=== PATIENT | female | born 1970 | race Caucasian/White ===

== ENCOUNTER → 2018-07-18 17:47 | Outpatient (CLI) | payer BC, SELFPAY | PROVIDERS: PCP Family Medicine; Visit Provider Family Medicine | DX: G47.33 Obstructive sleep apnea (adult) (pediatric) (principal); R06.83 Snoring; I10 Essential (primary) hypertension; E66.9 Obesity, unspecified | CPT/HCPCS: 95806 ==

== ENCOUNTER → 2021-04-11 10:21 | Outpatient (CLI) | payer BC, SELFPAY ==
--- NOTE | 2021-04-11 10:21 | CT_ITS ---
PROCEDURE: CT ABDOMEN PELVIS WO/W CON CLINICAL INDICATION: hematuria,chronic cystitis COMPARISON: No exams were available for comparison TECHNIQUE: IV Contrast: 75ML Isovue 370 Oral Contrast None Axial images obtained with sagittal and coronal reformats. All CT scans at the facility use one or more dose reduction, viz: automated exposure control, ma/kV adjustment per patient size (including targeted exams where dose is matched to indication, i.e. head), or iterative reconstruction technique. FINDINGS: LOWER THORAX: No acute finding ABDOMEN & PELVIS: Fatty liver. No focal liver lesion apparent. The spleen, adrenal glands, pancreas, has an unremarkable appearance. There are few small periportal lymph nodes. There is a small duodenal diverticulum. The right kidney has an unremarkable appearance. Cortical scarring involves the left kidney. Coarse calcification is present in the lower pole of the left kidney within the cortex. There is some mild [employer] K irwin in the upper pole of the left kidney. No ureteral calculi. No hydronephrosis. There are few small retroperitoneal lymph nodes No intestinal obstruction or free air. No evidence of appendicitis. Small area of decreased density is present in the uterine fundus on the right at 9 mm and may represent a fibroid. The urinary bladder has an unremarkable appearance. There are few small nodes in the inguinal regions. There are mild degenerative changes in the lumbar spine. No acute bony anomalies. There is a small umbilical hernia containing fat. IMPRESSION: 1. Cortical scarring of the left kidney. Cortical calcification is present involving the left kidney. Some of these areas could be due to nonobstructing stones with associated scarring. No hydronephrosis. No ureteral calculi. 2. Other nonacute findings as described above. Dictated by: Humberto Byrd MD 04/12/2021 14:58 Humberto Byrd MD in [place] 04/12/2021 14:58
== END ==
PROVIDERS: PCP Family Medicine; Visit Provider Urology
DX: N30.20 Other chronic cystitis without hematuria (principal); R31.9 Hematuria, unspecified
CPT/HCPCS: 74178; Q9967

== ENCOUNTER → 2021-04-12 13:38 | Outpatient (CLI) | payer BC, SELFPAY | PROVIDERS: Visit Provider Urology | DX: Z20.822 Contact with and (suspected) exposure to COVID-19 (principal) | CPT/HCPCS: C9803; U0003; U0005 ==

== ENCOUNTER 2021-04-14 10:34 | Day surgery (SDC) | payer BC, SELFPAY ==
[2021-04-12 11:17] VITALS: BMI 42.5
[2021-04-14 10:51] VITALS: BP 189/91; PULSE 96; RESP 18; TEMP 36.6; O2SAT 98
[2021-04-14 11:40] VITALS: BP 128/74; PULSE 74; RESP 16; TEMP 36.2; O2SAT 99
--- NOTE | 2021-04-14 16:33 | HMH.OPNOTE ---
Date of procedure: 04/14/21 Pre-op Diagnosis:: Recurring urinary tract infections Post-op Diagnosis:: Recurrent urinary tract infections possibly a result of left ureteral reflux Procedure performed:: Cystoscopy Surgeon:: Moises August MD Anesthesia: local Estimated blood loss (mL): 0 Clinical Note:: 50-year-old white female with a long history of a urinary tract infections. She presents for urologic work-up. CT scan 2 days ago showed some scarring of the left kidney and it is smaller than the left side. There are also some calcifications noted in the left lower pole cortex. Operative findings:: Cystoscopy showed some cystitis cystica at the intertrigonal region. The left ureteral orifice was open and appears to be of a refluxing type. Operative note:: Patient taken to the cystoscopy suite after informed consent was obtained. On the stretcher she was placed into the frog-leg position and prepped and draped in the standard surgical fashion and 2% lidocaine placed into the urethra. After few minutes the flexible cystoscope introduced into the urethral meatus and into the bladder without difficulty. The bladder was examined in a systematic fashion. There was some cystitis cystica at the intertrigonal region near the bladder neck. No other mucosal abnormalities were noted. There was a midline bulge coming from the posterior part of the bladder which likely represents the uterus sitting on the bladder. The ureteral orifices in their normal anatomic position. Left ureteral orifice was round and open and appear to be of a refluxing type of orifice. The bladder neck and urethra were within normal limits. The scope removed the patient tolerated the procedure well. We discussed the findings and I would like to proceed with a voiding cystourethrogram. Recurrent urinary tract infections along with her scarred left kidney likely indicate history of reflux. She does state problems since childhood. She was placed on a prophylactic course of nitrofurantoin today. She is also on samples of Myrbetriq for urgency and frequency. She states that is working well with no symptoms. Condition: stable Disposition: same day Specimens:: None Complications:: None
== END 2021-04-14 11:55 | disposition home or self-care (01) ==
LOC: OUTP 10:36
PROVIDERS: PCP Family Medicine; Visit Provider Urology
PROC: (CPT 52000; principal; 2021-04-14 11:15)
DX: N39.0 Urinary tract infection, site not specified (principal); Z87.440 Personal history of urinary (tract) infections; I10 Essential (primary) hypertension; R56.9 Unspecified convulsions; Z87.891 Personal history of nicotine dependence; Z83.3 Family history of diabetes mellitus; Z82.49 Family history of ischemic heart disease and other diseases of the circulatory system; Z83.438 Family history of other disorder of lipoprotein metabolism and other lipidemia; Z82.3 Family history of stroke; Z80.9 Family history of malignant neoplasm, unspecified; Z83.49 Family history of other endocrine, nutritional and metabolic diseases
CPT/HCPCS: 52000

== ENCOUNTER → 2021-04-20 13:04 | Outpatient (CLI) | payer BC, SELFPAY ==
--- NOTE | 2021-04-20 13:04 | FL_ITS ---
PROCEDURE: FL VOIDING CYSTOURETHROGRAM CLINICAL INDICATION: URINARY REFLUX COMPARISON: CT CT ABDOMEN PELVIS WO/W CON from 04/11/2021 FINDINGS: Associate Director Of Nursing exam demonstrates multiple small renal calculi overlying the lower pole on the left. The largest stone is approximately 8 mm. There is calcification of the left iliolumbar ligament. Approximately 200 mL of cystic graph in was instilled into the urinary bladder. There was immediate reflux into the left ureter. There was passive reflux the to the left renal pelvicaliceal system with minimal dilatation of the pelvicaliceal system. No ureteral tortuosity evident. There was no evidence of reflux in the right kidney. The urinary bladder has an unremarkable appearance. IMPRESSION: Grade 3 left vesicoureteral reflux Left nephrolithiasis. Dictated by: Humberto Byrd MD 04/20/2021 15:46 Humberto Byrd MD in [place] 04/20/2021 15:46
== END ==
PROVIDERS: PCP Family Medicine; Visit Provider Urology
DX: N13.70 Vesicoureteral-reflux, unspecified (principal)
CPT/HCPCS: 74455

== ENCOUNTER → 2021-05-24 13:15 | Outpatient (CLI) | payer BC, SELFPAY | PROVIDERS: Visit Provider Urology | DX: Z01.812 Encounter for preprocedural laboratory examination (principal); Z11.52 Encounter for screening for COVID-19; N39.0 Urinary tract infection, site not specified; R32 Unspecified urinary incontinence | CPT/HCPCS: C9803; U0003; U0005 ==

== ENCOUNTER 2021-05-26 10:28 | Day surgery (SDC) | payer BC, SELFPAY ==
[2021-05-22 10:38] VITALS: BMI 42.5
[2021-05-26 10:49] LABS: Urine Pregnancy, HCG Qual. Negative (Negative)
--- NOTE | 2021-05-26 10:54 | SUR.PREOP ---
Dr August cancelled surgery due to he wants to use a different product for her procedure. Office will reschedule.
== END 2021-05-26 10:56 | disposition home or self-care (01) ==
LOC: OR 10:30
PROVIDERS: PCP Family Medicine; Visit Provider Urology
PROC: 0TJB8ZZ Inspection of Bladder, Via Natural or Artificial Opening Endoscopic (ICD-10-PCS; CPT 52000; principal; 2021-05-26 11:45)
DX: Z53.8 Procedure and treatment not carried out for other reasons (principal)
CPT/HCPCS: 81025

== ENCOUNTER → 2021-06-23 13:37 | Outpatient (CLI) | payer BC, SELFPAY | PROVIDERS: Visit Provider Urology | DX: Z01.812 Encounter for preprocedural laboratory examination (principal); Z11.52 Encounter for screening for COVID-19; N39.0 Urinary tract infection, site not specified | CPT/HCPCS: C9803; U0003; U0005 ==

== ENCOUNTER 2021-06-26 08:53 | Day surgery (SDC) | payer BC, SELFPAY ==
[2021-06-20 15:18] VITALS: BMI 42.5
[2021-06-26] VITALS (9 sets, daily range): BP systolic 103–157; BP diastolic 53–83; PULSE 58–89; RESP 12–18; TEMP 36.1–37.1; O2SAT 93–97
[2021-06-26 09:30] LABS: Urine Pregnancy, HCG Qual. Negative (Negative)
--- NOTE | 2021-06-26 09:49 | P.PN_ITS ---
[facility] Anesthesia Checklist - Patient Identification Patient Identification: Arm Band - Structural Data Admitted From: Home Planned Operative Procedure/s: Cystoscopy Consent for Planned Operative Procedure(s) Verified: Yes - NPO Status Verified Time NPO: 00:00 - Additional verifications Anesthesia Reactions: No Hx Blood Transfusions: No Blood Transfusion Reaction: No - Airway Assessment C-Spine Mobility Assessed: Yes TMJ Mobility Assessed: Yes Dentition: Good Dentition - Neurological Assessment Level of Consciousness: Awake Hx Seizures: Yes (Once at 19 yrs old) Numbness or tingling in extremities: No - Anesthesia Plan Anesthesia Risk discussed: Yes Anesthesia Plan: Verified ASA Class: III Anesthesia Type: General [facility] History I have reviewed the patient's past medical history: Yes Medical History: Reports:: Hypertension, Seizures Denies:: Cancer, Diabetes Mellitus Type 1, Diabetes Mellitus Type 2, Internal Pacemaker, MRSA *Have you ever received a pneumonia vaccine?: No *Have you received a flu vaccine this season?: Yes Other Medical History: Denies: Blood Transfusion Reaction Anesthesia experience/problems:: None Other Surgeries: Yes: No Previous Surgery, Dilation and Curettage. No: Pacemaker Amputation: No Fractures: No - *Social History Last grade of school completed: High school graduate Smoking Status: Former smoker Alcohol Intake: current Alcohol Intake Frequency:: holidays/special occasions only Substance Use Type: denies use *Occupational Status:: employed Housing: house Household Members: spouse *Travel in the last 8 weeks: None Family Hx:: Cancer, Diabetes
--- NOTE | 2021-06-26 11:16 | HMH.ANESI ---
[facility] Anesthesia Record Part I Intake, IV Amount: 400 Estimated blood loss (mL): 0 Urine output (mL): 0 Blood Pressure: 103/65 SaO2: 93 Pulse Rate: 70 Respiratory Rate: 13 Temperature: 98.7 F Patient is:: Drowsy, Oral/Nasal airway Stable to PACU at:: 11:14
--- NOTE | 2021-06-26 16:51 | HMH.OPNOTE ---
Date of procedure: 06/26/21 Pre-op Diagnosis:: Left vesicoureteral reflux Post-op Diagnosis:: Same Procedure performed:: Cystoscopy with injection of submucosal Deflux treatment of vesicoureteral reflux Surgeon:: Moises August MD FINISHING INSPECTOR:: Clay Booth Anesthesia: LMA Estimated blood loss (mL): 0 Clinical Note:: 50-year-old white female with recurring urinary tract infections has left vesicoureteral reflux on voiding cystourethrogram. She presents for treatment of the reflux. Operative findings:: Bladder with mild cystitis cystica. Ureteral orifices in their normal anatomic position. Left ureteral orifice appeared to be of a refluxing state. Operative note:: Patient taken to the operating room after informed consent was obtained. She was placed on the operating table in the supine position and general anesthesia administered. Preoperative antibiotics and sequential compression devices placed. She was then placed into the dorsal lithotomy position and prepped and draped in the standard surgical fashion. The 22 Tajik cystoscope passed into the urethra and into the bladder. The bladder was examined in a systematic fashion. Some mild cystitis cystica was present. The ureteral orifices in their normal anatomic position. Clear efflux of urine was noted from each ureter. The Deflux needle was attached to the syringe and the Deflux fluid was primed to the end of the needle. The needle was then placed through the scope and placed into the sub ureteric mucosa at the 6 o'clock position. Deflux was then slowly injected through the needle and there was good coaptation of the mucosa extending the ureteral orifice anteriorly. The entire quantity the needle was utilized. The needle was left in place for 60 seconds. It was then removed and there was no extravasation of material. Scope then removed. Urojet placed into the urethra. No bleeding was noted from the site. Patient tolerated procedure well no complications. Condition: stable Disposition: PACU Specimens:: None Complications:: None
[2021-06-27 07:19] VITALS: BP 124/77; PULSE 76; TEMP 36.4
--- NOTE | 2021-06-27 07:19 | P.PN_ITS ---
[facility] Anesthesia Record Part II Discharge Time: 11:44 Destination: Surgical Day Care (OP Surgery) PACU nurse assessment reviewed?: Yes Patient Condition:: Good Anesthesia Complications:: None Swallowing reflex intact?: Yes Cyanosis?: No Blood Pressure: 124/77 Pulse Rate: 76 Temperature: 97.5 F Mental Status: Alert & Oriented Pain level:: 0 Nausea and/or vomitting:: None Intake, IV Amount: 0
== END 2021-06-26 12:15 | disposition home or self-care (01) ==
LOC: OR 08:55
PROVIDERS: PCP Family Medicine; Visit Provider Urology
PROC: 0TJB8ZZ Inspection of Bladder, Via Natural or Artificial Opening Endoscopic (ICD-10-PCS; CPT 52000; principal; 2021-06-26 10:15)
DX: N13.70 Vesicoureteral-reflux, unspecified (principal); N30.80 Other cystitis without hematuria; Z87.440 Personal history of urinary (tract) infections; I10 Essential (primary) hypertension; R56.9 Unspecified convulsions; Z87.891 Personal history of nicotine dependence; Z80.9 Family history of malignant neoplasm, unspecified; Z83.3 Family history of diabetes mellitus; Z79.899 Other long term (current) drug therapy
CPT/HCPCS: 52344; 81025; 96374; J2405

== ENCOUNTER → 2021-08-18 07:44 | Outpatient (CLI) | payer BC, SELFPAY ==
--- NOTE | 2021-08-18 07:45 | FL_ITS ---
FINAL REPORT CLINICAL HISTORY: recurring UTI FINDINGS: Voiding cystourethrogram. HISTORY:Recurring UTIs PROCEDURE: 150 ml of Cystografin was introduced in a retrograde fashion into the bladder by gravity drip. Spot and overhead films were obtained. FINDINGS: Print Cutter film is normal. The urinary bladder distends appropriately. The patient was unable to void on the table during fluoroscopy. Post void film demonstrates no evidence of contrast in the upper collecting systems. IMPRESSION: No evidence of vesicoureteral reflux. Films reviewed , interpreted and dictated by Dr. Espino Transcribed by Edilson Castro PA-C. Reviewed, Interpreted and Dictated by Bossman Espino III, MD Transcribed by [facility] Authenticated by Bossman Espino III, MD on 08/18/2021 10:59:50 AM [facility]
== END ==
PROVIDERS: PCP Family Medicine; Visit Provider Urology
DX: N13.70 Vesicoureteral-reflux, unspecified (principal); N39.0 Urinary tract infection, site not specified
CPT/HCPCS: 74455

== ENCOUNTER → 2021-08-21 14:27 | Outpatient (CLI) | payer BC, SELFPAY ==
--- NOTE | 2021-08-21 14:42 | US_ITS ---
FINAL REPORT CLINICAL HISTORY: DUB FINDINGS: Transvaginal sonographic images of the pelvis were obtained. The uterus measures 8.6 x 6.3 cm. The endometrium measures 1.3 cm. By history the patient is not postmenopausal. The uterus is enlarged and heterogeneous with multiple fibroids visualized. The right ovary measures 2.8 cm in length and left ovary measures 3.1 cm in length. Normal blood flow seen to the ovaries. There are small cysts or follicles seen on both ovaries. There is no evidence of free fluid. IMPRESSION: Multiple fibroids visualized in the uterus. 1.3 cm endometrium. If patient is perimenopausal, a gynecological evaluation is recommended. Reviewed, Interpreted and Dictated by Davon aMnzo MD Transcribed by Jeanine Hassan Authenticated by Davon Manzo MD on 08/21/2021 04:23:32 PM [facility]
[2021-08-21 14:50] LABS: Basophils # 0.1 K/mm3 (0-0.2); Basophils % 1.3 % (0.1-2.0); Eosinophils # 0.2 K/mm3 (0.0-0.4); Eosinophils % 2.4 % (0.1-12.0); Hematocrit 43.3 % (37.0-47.0); Hemoglobin 14.5 g/dL (12.2-16.2); Lymphocytes # 2.4 K/mm3 (0.7-4.5); Lymphocytes % 26.6 % (10-50); Mean Corpuscular HGB Conc 33.4 g/dL (31.8-35.4); Mean Corpuscular Hemoglobin 30.7 pg (27.0-31.2); Mean Corpuscular Volume 91.8 fl (81-99); Mean Platelet Volume 8.3 fl (7.4-10.4); Monocytes # 0.4 K/mm3 (0.1-1.0); Monocytes % 4.2 % (1.7-9.3); Neutrophils % 65.5 % (37.0-80.0); Platelet Count 232 K/mm3 (142-424); Red Blood Count 4.71 M/mm3 (4.20-5.40); Red Cell Distribution Width 14.3 % (11.5-17.5); White Blood Count 9.1 K/mm3 (4.8-10.8)
[2021-08-23 09:14] LABS: FSH 52.6 mIU/mL (.)
== END ==
PROVIDERS: PCP Family Medicine; Visit Provider Obstetrics & Gynecology
DX: N93.9 Abnormal uterine and vaginal bleeding, unspecified (principal); N93.8 Other specified abnormal uterine and vaginal bleeding
CPT/HCPCS: 36415; 76830; 83001; 85025

== ENCOUNTER → 2021-09-19 13:26 | Outpatient (CLI) | payer BC, SELFPAY ==
[2021-09-19 14:30] LABS: Basophils # 0.1 K/mm3 (0-0.2); Eosinophils # 0.2 K/mm3 (0.0-0.4); Eosinophils % 1.8 % (0.1-12.0); Hematocrit 44.6 % (37.0-47.0); Hemoglobin 14.6 g/dL (12.2-16.2); Lymphocytes # 2.4 K/mm3 (0.7-4.5); Lymphocytes % 23.7 % (10-50); Mean Corpuscular HGB Conc 32.7 g/dL (31.8-35.4); Mean Corpuscular Hemoglobin 29.5 pg (27.0-31.2); Mean Corpuscular Volume 90.3 fl (81-99); Mean Platelet Volume 8.7 fl (7.4-10.4); Monocytes # 0.4 K/mm3 (0.1-1.0); Monocytes % 3.7 % (1.7-9.3); Neutrophils # 7.2 K/mm3 (1.8-7.8); Neutrophils % 69.9 % (37.0-80.0); Platelet Count 266 K/mm3 (142-424); Red Blood Count 4.93 M/mm3 (4.20-5.40); Red Cell Distribution Width 14.1 % (11.5-17.5); White Blood Count 10.2 K/mm3 (4.8-10.8)
[2021-09-19 14:43] LABS: Urine Pregnancy, HCG Qual. Negative (Negative)
[2021-09-19 14:59] LABS: Chloride 99 mmol/L (98-107)
[2021-09-19 15:00] LABS: Potassium 4.7 mmoL/L (3.5-5.1); Sodium 135 mmol/L (136-145)
[2021-09-19 15:02] LABS: Alanine Aminotransferase 15 U/L (12-78); Alkaline Phosphatase 115 U/L (38-126); Anion Gap 13.7 mEq/L (5-15); Aspartate Amino Transferase 29 U/L (14-36); Bilirubin,Total 0.5 mg/dl (0.2-1.3); Blood Urea Nitrogen 10 mg/dl (7-17); Carbon Dioxide 27 mmol/L (22.0-30.0); Estimated Glomerular Filt Rate 66 ml/min (>60); GFR (African American) 80 ML/MIN (>60)
[2021-09-19 15:03] LABS: Albumin Level 4.7 g/dl (3.5-5.0); Albumin/Globulin Ratio 1.7 (1.1-1.8); Calcium 8.8 mg/dl (8.4-10.2); Globulin 2.7 g/dL (1.3-3.2); Glucose 102 mg/dl (74-100); Total Protein,Serum 7.4 g/dl (6.3-8.2)
== END ==
PROVIDERS: PCP Family Medicine; Visit Provider Obstetrics & Gynecology
DX: Z01.812 Encounter for preprocedural laboratory examination (principal); Z11.52 Encounter for screening for COVID-19; N95.0 Postmenopausal bleeding
CPT/HCPCS: 36415; 80053; 81025; 85025; C9803; U0003; U0005

== ENCOUNTER 2021-09-21 07:49 | Day surgery (SDC) | payer BC, SELFPAY ==
[2021-09-18 09:40] VITALS: BMI 43.4
[2021-09-21] VITALS (9 sets, daily range): BP systolic 124–165; BP diastolic 71–90; PULSE 76–98; RESP 16–18; TEMP 36.6–37.6; O2SAT 93–99
[2021-09-21 08:57] LABS: Barbiturates Screen,Urine Negative ng/ml (<200)
[2021-09-21 08:58] LABS: Amphetamine/Metha Screen,Urine Negative ng/ml (<1000); Benzodiazepines Screen,Urine Positive ng/ml (<200)
[2021-09-21 08:59] LABS: Cannabinoid Screen,Urine Negative ng/ml (<50)
[2021-09-21 09:00] LABS: Cocaine Screen,Urine Negative ng/ml (<300); Methadone Screen,Urine Negative ng/ml (<300)
[2021-09-21 09:01] LABS: Opiate Screen,Urine Negative ng/ml (<300)
[2021-09-21 09:02] LABS: Phencyclidine Screen,Urine Negative ng/ml (<25)
--- NOTE | 2021-09-21 10:20 | HMH.ANESI ---
[facility] Anesthesia Record Part I Intake, IV Amount: 200 Estimated blood loss (mL): 0 Urine output (mL): 0 Blood Pressure: 133/75 SaO2: 93 Pulse Rate: 91 Respiratory Rate: 16 Temperature: 99.7 F Patient is:: Drowsy, Oral/Nasal airway Stable to PACU at:: 10:17
--- NOTE | 2021-09-21 10:27 | P.PN_ITS ---
[facility] Anesthesia Checklist - Patient Identification Patient Identification: Arm Band - Structural Data Admitted From: Home Planned Operative Procedure/s: Hyst/D&C/Novasure Consent for Planned Operative Procedure(s) Verified: Yes - NPO Status Verified Time NPO: 00:00 - Additional verifications Anesthesia Reactions: No Hx Blood Transfusions: No Blood Transfusion Reaction: No - Airway Assessment C-Spine Mobility Assessed: Yes TMJ Mobility Assessed: Yes Dentition: Good Dentition - Neurological Assessment Level of Consciousness: Awake Hx Seizures: No Numbness or tingling in extremities: No - Anesthesia Plan Anesthesia Risk discussed: Yes Anesthesia Plan: Verified ASA Class: II Anesthesia Type: General [facility] History I have reviewed the patient's past medical history: Yes Medical History: Reports:: Anxiety, Hypertension, Seizures, Urinary Tract Infection Denies:: Cancer, Diabetes Mellitus Type 1, Diabetes Mellitus Type 2, Internal Pacemaker, MRSA *Have you ever received a pneumonia vaccine?: No *Have you received a flu vaccine this season?: Yes Other Medical History: Denies: Blood Transfusion Reaction Anesthesia experience/problems:: None Other Surgeries: Yes: No Previous Surgery, Dilation and Curettage. No: Pac emaker Amputation: No Fractures: No - *Social History Last grade of school completed: High school graduate Smoking Status: Former smoker Alcohol Intake: never Alcohol Intake Frequency:: holidays/special occasions only Substance Use Type: denies use *Occupational Status:: employed Housing: house Household Members: spouse *Travel in the last 8 weeks: None Family Hx:: Cancer, Diabetes
--- NOTE | 2021-09-21 13:30 | HMH.OPNOTE ---
Date of procedure: 09/22/21 Pre-op Diagnosis:: 1. Postmenopausal bleeding 2. Thickened endometrium Post-op Diagnosis:: same Procedure performed:: Myosure D&C Hysteroscopy Surgeon:: Mary Irizarry MD SENIOR DESIGN ENGINEERING SPECIALIST:: Clay Booth Anesthesia: GETA Estimated blood loss (mL): 5 Operative findings:: hypervascularity of uterine cavity diffuse proliferative tissue, inconsistent with postmenopausal status no polyps or fibroids visualized Operative note:: The patient was taken to the OR and general anesthesia administered without difficulty. She was prepped/draped in lithotomy position. The cervix was dilated and hysteroscopic evaluation performed. No fibroids or polyps were visualized within the endometrial cavity. The tissue appeared more vascular than expected, and was diffusely proliferative in appearance. The Myosure was used to remove this tissue. Once this was completed, all instruments were removed from her uterus and vagina. She was taken out of lithotomy position, awakened from anesthesia and taken to the PACU in stable condition. All sponge, needle & instrument counts correct. EBL 5cc. Condition: stable Disposition: PACU Specimens:: Endometrial curettings Complications:: None
[2021-09-25 09:15] VITALS: BP 145/84; PULSE 82; TEMP 36.6
--- NOTE | 2021-09-25 09:15 | HMH.ANESII ---
[facility] Anesthesia Record Part II Discharge Time: 10:57 Destination: [facility] PACU nurse assessment reviewed?: Yes Patient Condition:: Good Anesthesia Complications:: None Swallowing reflex intact?: Yes Cyanosis?: No Blood Pressure: 145/84 Pulse Rate: 82 Temperature: 97.9 F Mental Status: Alert & Oriented Pain level:: 4 Nausea and/or vomitting:: None Intake, IV Amount: 500
== END 2021-09-21 11:30 | disposition home or self-care (01) ==
LOC: OR 07:53
PROVIDERS: PCP Family Medicine; Visit Provider Obstetrics & Gynecology
PROC: (CPT 58120; principal; 2021-09-21 09:15)
DX: N95.0 Postmenopausal bleeding (principal); R93.89 Abnormal findings on diagnostic imaging of other specified body structures; I10 Essential (primary) hypertension; F41.9 Anxiety disorder, unspecified; R56.9 Unspecified convulsions; Z87.440 Personal history of urinary (tract) infections
CPT/HCPCS: 58120; 80305; 96374; J2405

== ENCOUNTER → 2021-09-29 15:41 | Outpatient (CLI) | payer BC, SELFPAY ==
--- NOTE | 2021-09-29 15:41 | MM_ITS ---
PROCEDURE INFORMATION: Exam: MG Bilateral Screening 3D Mammography Exam date and time: 09/29/2021 3:41 PM Age: 51 years old Clinical indication: Encounter for screening mammogram for malignant neoplasm of breast TECHNIQUE: Imaging protocol: Bilateral Screening tomosynthesis and 2D mammography including computer-aided detection (CAD) when performed. COMPARISON: 1. MG DMSB DIG MAMM-SCREEN ITZ 01/11/2014 5:16 PM 2. MG DMSB DIG MAMM-SCREEN ITZ 12/04/2012 8:35 AM 3. MG DMSB DIGITAL MAMM-SCREEN BILATERAL 12/05/2011 4:35 PM FINDINGS: MAMMOGRAPHY: Breast composition: The breasts are heterogeneously dense, which may obscure small masses. Mass: No suspicious masses. Architectural distortion: No suspicious distortion. Calcifications: No suspicious calcifications. Asymmetric density: None. Skin thickening: None. Axillary adenopathy: None. IMPRESSION: No mammographic evidence of malignancy. Annual screening is recommended unless otherwise clinically indicated. ASSESSMENT: BI-RADS Category 1: Negative
== END ==
PROVIDERS: PCP Family Medicine; Visit Provider Obstetrics & Gynecology
DX: Z12.31 Encounter for screening mammogram for malignant neoplasm of breast (principal)
CPT/HCPCS: 77063; 77067

== ENCOUNTER → 2022-11-05 09:48 | Outpatient (CLI) | payer BC, SELFPAY ==
--- NOTE | 2022-11-05 09:55 | MM_ITS ---
PROCEDURE INFORMATION: Exam: MG Bilateral Screening 3D Mammography Exam date and time: 11/05/2022 9:47 AM Age: 52 years old Clinical indication: Screening. No family history of breast cancer. TECHNIQUE: Imaging protocol: Bilateral Screening tomosynthesis and 2D mammography including computer-aided detection (CAD) when performed. COMPARISON: 1. MG MM DIG SCREENING MAMM BI W/CAD 09/29/2021 3:49 PM 2. MG DMSB DIG MAMM-SCREEN ITZ 01/11/2014 5:16 PM 3. MG DMSB DIG MAMM-SCREEN ITZ 12/04/2012 8:35 AM 4. MG DMSB DIGITAL MAMM-SCREEN BILATERAL 12/05/2011 4:35 PM FINDINGS: MAMMOGRAPHY: Breast composition: The breasts are heterogeneously dense, which may obscure small masses. Mass: No suspicious mass. Architectural distortion: None. Calcifications: No suspicious calcifications. Asymmetric density: None. Skin thickening: None. Axillary adenopathy: None. IMPRESSION: No mammographic evidence of malignancy. Annual screening is recommended unless otherwise clinically indicated. ASSESSMENT: BI-RADS Category 1: Negative
== END ==
PROVIDERS: PCP Family Medicine; Visit Provider Family Medicine
DX: Z12.31 Encounter for screening mammogram for malignant neoplasm of breast (principal)
CPT/HCPCS: 77063; 77067